=== PATIENT | male | born 1995 | race Two or more races ===

== ENCOUNTER 2016-10-01 12:56 | Emergency (ER) | payer SELFPAY ==
[~2016-10-01] VITALS: Ht 172.7 cm; Wt 88.5 kg
[2016-10-01] MEDS ORDERED: IV SET PRIMARY 1 EA INFUS.SET MC ONE (13:09)
[2016-10-01] MEDS ORDERED: IV NS 0.9% 1,000 ML ONE (13:10)
[2016-10-01 13:14] LABS: BASOPHILS % (AUTO) 0.3 % (0.0-2.0); DIFF TOTAL % 100 %; EOSINOPHILS # (AUTO) 0.1 /CMM (0.0-0.7); EOSINOPHILS % (AUTO) 0.5 % (0.0-6.0); HEMATOCRIT 41 % (39-51); HEMOGLOBIN 13.5 g/dL (13.5-17.5); LYMPHOCYTES # (AUTO) 2.6 /CMM (0.8-4.8); LYMPHOCYTES % (AUTO) 21.1 % (20.0-44.0); MEAN CORPUSCULAR HEMOGLOBIN 31 PG (26.0-33.0); MEAN CORPUSCULAR HGB CONC 33 g/dl (31.0-36.0); MEAN CORPUSCULAR VOLUME 94 fL (80-96); MONOCYTES % (AUTO) 8.4 % (2.0-12.0); NEUTROPHILS # (AUTO) 8.8 /CMM (1.8-8.9); NEUTROPHILS % (AUTO) 69.7 % (43.0-81.0); PLATELET COUNT (AUTO) 234 /CMM (150-450); RED BLOOD CELL COUNT(AUTO) 4.35 MIL/uL (4.5-6.0); WHITE BLOOD COUNT (AUTO) 12.5 K/uL (4.3-11.0)
[2016-10-01 13:25] LABS: ANION GAP 16 (5-14); CALCIUM, SERUM 9.2 mg/dL (8.5-10.1); CARBON DIOXIDE 26 mmol/L (21-32); CHLORIDE 101 mmol/L (98-107); CREATININE 1.2 mg/dL (0.6-1.3); GFR 76 mL/min (>60); GLUCOSE 106 mg/dL (74-106); POTASSIUM 3.9 mmol/L (3.5-5.1); SODIUM SERUM 139 mmol/L (136-145); UREA NITROGEN, BLOOD 12 mg/dL (7-18)
[2016-10-01] MEDS ORDERED: IV NS 0.9% 1,000 ML BAG IV ONE (13:30)
[2016-10-01 13:31] LABS: ALANINE AMINOTRANSFERASE 61 U/L (12-78); ALBUMIN 4.5 g/dL (3.4-5.0); ASPARTATE AMINOTRANSFERASE 46 U/L (15-37); BILIRUBIN,DIRECT 0.1 mg/dL (0.0-0.2); BILIRUBIN,TOTAL 0.3 mg/dL (0.2-1.0); INDIRECT BILIRUBIN 0.2 mg/dL (0.0-1.1); SALICYLATE 3.1 mg/dL (2.8-20.0)
[2016-10-01 13:32] LABS: ACETAMINOPHEN 0 ug/ml (10-30)
[2016-10-01 14:04] LABS: ADD UA MICROSCOPIC NO; KETONES,URINE NEGATIVE (NEGATIVE); LEUKOCYTE ESTERASE ,URINE NEGATIVE (NEGATIVE)
[2016-10-01 14:16] LABS: PHENCYCLIDINE SCREEN,URINE NEGATIVE (NEGATIVE)
[2016-10-01 14:18] LABS: CANNABINOID, URINE POSITIVE (NEGATIVE)
[2016-10-01 17:21] VITALS: BP 121/68
== END 2016-10-01 17:22 | disposition home or self-care (01) ==
LOC: ER 12:58
DX: F19.10 Other psychoactive substance abuse, uncomplicated (principal); I10 Essential (primary) hypertension; F17.210 Nicotine dependence, cigarettes, uncomplicated; R41.82 Altered mental status, unspecified
CPT/HCPCS: 36415; 80048; 80076; 80305; 80329; 81001; 85025; 93005; 96360; 99285; A4606; G0480 ×2; J7030; Z7610; 81000-TC; G6039-TC

== ENCOUNTER 2019-12-26 12:04 | Emergency (ER) | payer MEDICAID, OTHER ==
[~2019-12-26] VITALS: Ht 172.7 cm; Wt 72.6 kg
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
--- NOTE | 2019-12-26 12:44 | NUR ---
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
[2019-12-26 13:01] LABS: BASOPHILS % (AUTO) 0.3 % (0.0-2.0); EOSINOPHILS % (AUTO) 0.6 % (0.0-6.0); HEMATOCRIT 37 % (39-51); HEMOGLOBIN 12.4 g/dL (13.5-17.5); LYMPHOCYTES # (AUTO) 3.5 /CMM (0.8-4.8); LYMPHOCYTES % (AUTO) 43.8 % (20.0-44.0); MEAN CORPUSCULAR HGB CONC 33 g/dl (31.0-36.0); MEAN CORPUSCULAR VOLUME 91 fL (80-96); MONOCYTES # (AUTO) 0.9 /CMM (0.1-1.30); MONOCYTES % (AUTO) 11.1 % (2.0-12.0); NEUTROPHILS # (AUTO) 3.5 /CMM (1.8-8.9); NEUTROPHILS % (AUTO) 44.2 % (43.0-81.0); PLATELET COUNT (AUTO) 199 /CMM (150-450); RED BLOOD CELL COUNT(AUTO) 4.09 MIL/uL (4.5-6.0); WHITE BLOOD COUNT (AUTO) 7.9 K/uL (4.3-11.0)
[2019-12-26 13:06] LABS: CALCIUM, SERUM 8.8 mg/dL (8.5-10.1); CARBON DIOXIDE 27 mmol/L (21-32); CHLORIDE 104 mmol/L (98-107); CREATININE 1.3 mg/dL (0.6-1.3); GLUCOSE 66 mg/dL (74-106); POTASSIUM 3.8 mmol/L (3.5-5.1); SODIUM SERUM 140 mmol/L (136-145); UREA NITROGEN, BLOOD 19 mg/dL (7-18)
[2019-12-26 13:11] LABS: ALANINE AMINOTRANSFERASE 21 U/L (12-78); ALBUMIN 3.8 g/dL (3.4-5.0); ALCOHOL, BLOOD < 3 mg/dL (0-0); ALKALINE PHOSPHATASE 66 U/L (46-116); ASPARTATE AMINOTRANSFERASE 19 U/L (15-37); BILIRUBIN,DIRECT 0.1 mg/dL (0.0-0.2); BILIRUBIN,TOTAL 0.4 mg/dL (0.2-1.0)
[2019-12-26 13:12] LABS: ACETAMINOPHEN < 2 ug/ml (10-30)
[2019-12-26 13:23] LABS: APPEARANCE,URINE Clear (CLEAR); BILIRUBIN,URINE Negative (NEGATIVE); BLOOD, URINE Negative Ery/uL (NEGATIVE); COLOR,URINE Yellow (YELLOW); KETONES,URINE Negative (NEGATIVE); LEUKOCYTE ESTERASE ,URINE Negative (NEGATIVE); NITRITE, URINE Negative (NEGATIVE); PROTEIN,URINE 30 mg/dl (NEGATIVE); UGLUCOSE Negative (NEGATIVE); UROBILINOGEN,URINE 0.2 EU/dL (0.2)
--- NOTE | 2019-12-26 14:51 | NUR ---
PATIENT ASLEEP, VITALS STABLE. NO DISTRESS NOTED.
--- NOTE | 2019-12-26 20:50 | NUR ---
Tere james in ED - 12/26/19 at 2140 by JAIDEN DOMINGO HUIZARW AT BEDSIDE TO CHRISTIN BEAL.
--- NOTE | 2019-12-26 20:50 | NUR ---
DOMINGO DE LOS SANTOS DIRECTOR MEDICAL WRITING AT BEDSIDE TO EVAL PT.
--- NOTE | 2019-12-26 21:06 | NUR ---
PT CLEARED FOR PSYCH PER DOMINGO DE LOS SANTOS. PT CALM AND COOPERATIVE. PT AAOX4 NO ACUTE DISTRESS NOTED, RESP EVEN AND UNLABORED. PT DENIES PAIN OR DISCOMFORT, PT DENIES SI/HI.
--- NOTE | 2019-12-26 22:22 | NUR ---
Patient discharged to home in stable condition. Written and verbal after care instructions given. Patient verbalizes understanding of instruction. ambulatory with a steady gait. pt aaox4 no acute distress noted, resp even and unlabored. advice pt not to drive or operate any machinery due to drug abuse. pt verbalize understanding.
--- NOTE | 2019-12-26 22:22 | NUR ---
pt denies being homeless.
[2019-12-26 22:24] VITALS: BP 124/62
== END 2019-12-26 22:25 | disposition home or self-care (01) ==
LOC: ER 12:04
DX: T50.991A Poisoning by other drugs, medicaments and biological substances, accidental (unintentional), initial encounter (principal); R41.82 Altered mental status, unspecified; I10 Essential (primary) hypertension; Y92.89 Other specified places as the place of occurrence of the external cause
CPT/HCPCS: 36415; 80048; 80076; 80305; 80307; 80329; 81001; 85025; 99285; G0480; 81000-TC

== ENCOUNTER 2020-05-02 16:34 | Emergency (ER) | payer MEDICAID ==
[~2020-05-02] VITALS: Ht 167.6 cm; Wt 65.8 kg
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
[2020-05-02] MEDS ORDERED: LET SOLN TOPICAL 8 ML UDC TP ONE (16:50)
[2020-05-02] MEDS ORDERED: TRAMADOL HCL 50 MG TABLET ONE (16:50)
[2020-05-02] MEDS: TRAMADOL HCL 50 MG TABLET PO ONE (16:52)
[2020-05-02 17:35] VITALS: BP 128/66
--- NOTE | 2020-05-02 17:35 | NUR ---
Patient discharged to home in stable condition. Written and verbal after care instructions given. Patient verbalizes understanding of instruction.
== END 2020-05-02 17:35 | disposition home or self-care (01) ==
LOC: ER 16:35
DX: S01.21XA Laceration without foreign body of nose, initial encounter (principal); I10 Essential (primary) hypertension; F32.9 Major depressive disorder, single episode, unspecified; F41.9 Anxiety disorder, unspecified; Y04.0XXA Assault by unarmed brawl or fight, initial encounter; Y93.89 Activity, other specified; Y92.89 Other specified places as the place of occurrence of the external cause; Y99.8 Other external cause status

== ENCOUNTER 2020-05-14 13:44 | Emergency (ER) | payer MEDICAID ==
[~2020-05-14] VITALS: Ht 175.3 cm; Wt 61.2 kg
[2020-05-14 13:48] VITALS: BP 125/81
--- NOTE | 2020-05-14 15:08 | NUR ---
Patient discharged to home in stable condition. Written and verbal after care instructions given. Patient verbalizes understanding of instruction. Pt ambulatory with a steady gait
== END 2020-05-14 15:08 | disposition home or self-care (01) ==
LOC: ER 13:44
DX: S01.21XD Laceration without foreign body of nose, subsequent encounter (principal); I10 Essential (primary) hypertension; X58.XXXD Exposure to other specified factors, subsequent encounter

== ENCOUNTER 2022-06-10 01:20 | Emergency (ER) | payer MEDICAID, OTHER ==
[~2022-06-10] VITALS: Ht 177.8 cm; Wt 74.8 kg
--- NOTE | 2022-06-10 01:40 | NUR ---
[employer] AT BED SIDE MALKING REPORT
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
[2022-06-10] MEDS ORDERED: LIDOCAINE 1%-EPI 1:100,000 20 ML VIAL TP ONE (02:00)
[2022-06-10] MEDS ORDERED: LIDOCAINE 2%-EPI 1:100,000 30 ML VIAL ONE (02:00)
[2022-06-10] MEDS ORDERED: TDAP [DIPH/PERTUSSIS/TET] 0.5 ML VIAL IM ONE ×2 (02:00)
--- NOTE | 2022-06-10 02:06 | NUR ---
SKIN PREP DONE. TTOXOID GIVEN ON LEFT DELTOID MUSCLE.
--- NOTE | 2022-06-10 02:18 | NUR ---
BROUGHT PT TO CT DEPT
[2022-06-10] MEDS ORDERED: CEPH500C2 PO (03:23)
[2022-06-10] MEDS ORDERED: IBUP-1953 PO (03:23)
--- NOTE | 2022-06-10 03:36 | NUR ---
PT IS MEDICALLY STABLE FOR D/C. Patient discharged to home in stable condition. Written and verbal after care instructions given. Patient verbalizes understanding of instruction.
[2022-06-10 03:37] VITALS: BP 129/68
== END 2022-06-10 03:37 | disposition home or self-care (01) ==
LOC: ER 01:22
DX: S01.111A Laceration without foreign body of right eyelid and periocular area, initial encounter (principal); R51.9 Headache, unspecified; I10 Essential (primary) hypertension; Z60.2 Problems related to living alone; Y04.0XXA Assault by unarmed brawl or fight, initial encounter; Y93.89 Activity, other specified; Y92.89 Other specified places as the place of occurrence of the external cause; Y99.8 Other external cause status
CPT/HCPCS: 99284; 12054; 70450; 90471; 90715; 70486; J3490

== ENCOUNTER 2022-06-17 13:11 | Emergency (ER) | payer OTHER ==
[~2022-06-17] VITALS: Ht 172.7 cm; Wt 70.3 kg
[~2022-06-17 13:11] MED LIST: CEPH500C2 PO; IBUP-1953 PO
[2022-06-17 13:30] VITALS: BP 148/98
--- NOTE | 2022-06-17 13:30 | NUR ---
SUTURE REMOVAL, RIGHT EYEBROW LACERATION REPAIRED 1 WEEK AGO
--- NOTE | 2022-06-17 14:39 | NUR ---
DR CERVANTES WENT TO REMOVE PT SUTURES, PT WAS NOT WITHIN THE ER. PT ELOPED PRIOR TO BEING SEEN BY THE MD.
== END 2022-06-17 14:42 | disposition left against medical advice (07) ==
LOC: ER 13:19
DX: Z53.21 Procedure and treatment not carried out due to patient leaving prior to being seen by health care provider (principal)